=== PATIENT | male | born 1995 | race Caucasian/White ===

== ENCOUNTER 2016-03-28 00:13 | Emergency (ER) | payer BC ==
[~2016-03-28] VITALS: Ht 180.3 cm; Wt 86.6 kg
[2016-03-28 00:15] VITALS: TEMP 36.9; Ht 180.3 cm; Wt 86.6 kg
[2016-03-28] MEDS ORDERED: MULT-506 PO (00:29)
[2016-03-28] MEDS ORDERED: FEXO1TAB58 PO (00:29)
[2016-03-28] MEDS ORDERED: XYLOCAINE 1%/SOD BICARB 20 ML VIAL INFIL ONE (00:45)
--- NOTE | 2016-03-28 00:45 | EMERGENCY ROOM VISIT NOTE ---
History Report prepared by Surinder: Nupur Pink Under the Supervision of: Dr. Corrine Dobson D.O. First contact with patient: 00:20 Chief Complaint: LACERATION/CUT (SUT/DERMABOND) Stated Complaint: BLEEDING/BONE EXPOSURE History of Present Illness He ready The patient is a 21 year old male who presents to the Emergency Room with complaints of a sudden fall that occurred prior to arrival. He currently rates his discomfort as a 6/10 in severity. The patient states that a grate at his house collapsed this evening, causing the patient to fall. He states that he obtained a laceration to his right yusuf during this fall. He denies any pain to his right knee, but notes pain below the laceration. The patient states that he was able to walk after the fall and bear weight on his right leg. He states that he injured his left wrist during the fall. The patient denies any abdominal pain, hip pain, or head trauma. He states that he is up to date on his tetanus shot. The patient states that he had one beer this evening two hours prior to the incident. He denies any active medical problems and states that he is a [employer] student. Source of History: patient Onset: prior to arrival Position: other (global) Symptom Intensity: 6/10 Quality: other (fall) Timing: other (sudden) Associated Symptoms: No abdominal pain Note: Associated Symptoms: laceration to right yusuf, left wrist pain Review of Systems See HPI for pertinent positives & negatives. A total of 10 systems reviewed and were otherwise negative. Past Medical & Surgical Medical Problems: (1) No active medical problems Family History No pertinent family history stated. Social History Alcohol Use: occasionally Occupation Status: [employer] student Current/Historical Medications Scheduled Fexofenadine-Pseudoephedrine (Consuelo-D 24 Hour Allergy), 1 TAB PO DAILY Multivitamin (Multivitamin), 1 TAB PO DAILY Allergies Coded Allergies: No Known Allergies (Unverified , 03/28/16) Physical Exam Vital Signs Date Time Temp Pulse Resp B/P Pulse Ox O2 Delivery O2 Flow Rate FiO2 03/28/16 02:46 74 18 141/71 95 03/28/16 00:15 36.9 97 18 142/81 97 Room Air Physical Exam HEENT: Head - normocephalic and atraumatic Pupils are equal, round, and reactive to light. Extraocular eye muscles are intact, and sclera are anicteric. Nose - moist nasal mucosa without discharge. Mouth - moist buccal mucosa. Oropharynx is nonerythematous and there is no tonsillar exudate or edema noted. Neck: Supple; no JVD, nuchal rigidity, cervical lymphadenopathy. Heart: Regular rate and rhythm. There is a normal S1 and S2 with no murmurs, clicks, or gallops appreciated. Lungs: Clear to auscultation bilaterally with no wheezes, rales, or rhonchi. Abdomen: Soft, completely nontender, nondistended, with good bowel sounds. There are no palpable pulsatile masses or hepatosplenomegaly. There is no guarding, rigidity, or rebound noted. Extremities: Left wrist painful to palpation on the lateral aspect. No evidence of cyanosis, clubbing, or edema. There are easily palpable peripheral pulses. Skin: 8.5 cm V shaped laceration to the right anterior tib/fib region with bone exposure. warm and dry with good turgor and no rashes. Medical Decision & Procedures ER Provider Diagnostic Interpretation: Right tib /fib x-ray: no obvious abnormality, soft tissue noted anteriorly. Left wrist x-ray: buckle fracture of the distal left radius Procedure Lidocaine HCl 20 ml INFIL. Right lower extremity suture repair: See procedure note dictation by Russel Limon PA-C. ED Course 0022: The patient was evaluated in room B10. A complete history and physical exam was performed. 0045: Ordered Lidocaine HCl 20 ml INFIL. The patient went for x-ray of the left wrist and right tib-fib area. 0129: I reevaluated the patient and he is doing well. I discussed the x-ray results with him at this time. 0133: Russel Limon PA-C repaired the patients laceration at this time using 24 sutures, with the wound approximated as 8 1/2 cm. See his note for further detail. 0232: Ortho-Glass material was applied to the left wrist. The patient had good pulses, motor, and sensation before and after splinting. I reevaluated the patient and he is doing well. I discussed the exam findings with him and I discussed the treatment plan. He verbalized complete understanding and agreement. He is ready to go home. Medical Decision The patient is a 21 year old male who presents to the ED with a fall. Differential diagnosis includes tibia fracture, wrist fracture, skin laceration This is a 21-year-old male patient who suffered a fall this evening when a storm drain grate gave way. The patient suffered a laceration to the right tib- fib region of his lower extremity. He also fell and the outstretched left hand/ wrist. He has a buccal fracture of the left distal radius. The wound was repaired and dressed with antibiotic ointment and a dressing. The left wrist was splinted and he will follow-up with orthopedics. Impression Primary Impression: Laceration of right lower leg Additional Impression: Fracture of left distal radius Scribe Attestation The scribe's documentation has been prepared under my direction and personally reviewed by me in its entirety. I confirm that the note above accurately reflects all work, treatment, procedures, and medical decision making performed by me. Departure Information Dispostion Home / Self-Care Referrals No Doctor, Assigned (PCP) Forms HOME CARE DOCUMENTATION FORM, IMPORTANT VISIT INFORMATION Patient Instructions ED Laceration Ext Sutr Stap Tape, ED Splint Care Fiberglass, My [facility] Additional Instructions Rest with your right leg elevated. Watch closely for signs of infection. Sutures will need removed in 10 days Keep the wound clean with soap and water. Wear fiberglass splint on left wrist until follow up with Ortho Problem Qualifiers
--- NOTE | 2016-03-28 02:30 | EMERGENCY ROOM VISIT NOTE ---
ED Visit Note I was approached by my attending physician and asked to perform primary wound closure for laceration to the RIGHT lower extremity. Please refer to her dictation for entire historical and physical examination information. Procedure as follows: Costs and benefits of performing primary wound closure versus no repair were discussed with the patient who verbalizes understanding. Verbal consent was obtained prior to performing the procedure. 6.0 cc of 1% buffered lidocaine was used to anesthetize the RIGHT yusuf laceration. The wound was cleansed and prepped in the typical sterile fashion utilizing normal saline and Betadine. The wound was sterilely draped. Once proper anesthetization was established, the wound was further examined and demonstrated an 8.5 cm laceration which is gaping. The edges of the musculature are appreciated without laceration of the muscle belly. The wound was copiously irrigated with normal saline and Betadine. The wound was closed using 5 simple interrupted 4-0 subcuticular Vicryl sutures, 8 vertical mattress 4-0 nylon sutures and 11 simple, 4-0 nylon sutures with the wound edges being well approximated. Patient tolerated the procedure well. No complications were met. The wound was cleansed and dressed with a Bacitracin dressing. Current/Historical Medications Scheduled Fexofenadine-Pseudoephedrine (Consuelo-D 24 Hour Allergy), 1 TAB PO DAILY Multivitamin (Multivitamin), 1 TAB PO DAILY Allergies Coded Allergies: No Known Allergies (Unverified , 03/28/16) Vital Signs Date Time Temp Pulse Resp B/P Pulse Ox O2 Delivery O2 Flow Rate FiO2 03/28/16 00:15 36.9 97 18 142/81 97 Room Air Departure Information Impression Primary Impression: Laceration of right lower leg Additional Impression: Fracture of left distal radius Dispostion Home / Self-Care Condition FAIR Referrals No Doctor, Assigned [facility] (PCP) Obie Mann M.D. Contact his office for follow up of the wrist Forms HOME CARE DOCUMENTATION FORM, IMPORTANT VISIT INFORMATION Patient Instructions My [facility], ED Laceration Ext Sutr Stap Tape, ED Splint Care Fiberglass Additional Instructions Rest with your right leg elevated. Watch closely for signs of infection. Sutures will need removed in 10 days Keep the wound clean with soap and water. Wear fiberglass splint on left wrist until follow up with Ortho
[2016-03-28 02:46] VITALS: BP 141/71; PULSE 74; O2SAT 95
--- NOTE | 2016-03-28 07:10 | DIAGNOSTIC IMAGING REPORT ---
RIGHT TIBIA/FIBULA 2 VIEWS ROUTINE CLINICAL HISTORY: Pain status post trauma. Laceration COMPARISON: None. DISCUSSION: No fractures or dislocations are visualized. There is a prominent soft tissue laceration over the anterior aspect of the mid tibial shaft. No radiopaque foreign bodies are visualized. IMPRESSION: Prominent anterior laceration. No fractures identified. Electronically signed by: David Fox M.D. 03/28/2016 7:08 AM Dictated Date/Time: 03/28/2016 7:07 AM
--- NOTE | 2016-03-28 07:11 | DIAGNOSTIC IMAGING REPORT ---
LEFT WRIST MIN 3 VIEWS ROUTINE CLINICAL HISTORY: Left wrist pain status post trauma COMPARISON: None. DISCUSSION: No fractures or dislocations are visualized. IMPRESSION: No fractures or dislocations identified. Electronically signed by: David Fox M.D. 03/28/2016 7:09 AM Dictated Date/Time: 03/28/2016 7:08 AM
== END 2016-03-28 02:39 | disposition home or self-care (01) ==
LOC: C.EDB 00:15
DX: S81.811A Laceration without foreign body, right lower leg, initial encounter (principal); S52.592A Other fractures of lower end of left radius, initial encounter for closed fracture; W19.XXXA Unspecified fall, initial encounter; Y92.009 Unspecified place in unspecified non-institutional (private) residence as the place of occurrence of the external cause

== ENCOUNTER → 2016-03-30 | Outpatient (CLI) | payer BC ==
[~2016-03-30] MED LIST: FEXO1TAB58 PO; MULT-506 PO
--- NOTE | 2016-03-30 15:20 | DIAGNOSTIC IMAGING REPORT ---
SINGLE VIEW LEFT WRIST CLINICAL HISTORY: Fall with wrist pain. FINDINGS: A scaphoid view of the left wrist is correlated with radiographs of the left wrist dated 03/28/2016. The skeletal structures are well mineralized. There is no radiographic evidence of scaphoid fracture on this single view. The overlying soft tissues are within normal limits. IMPRESSION: There is no radiographic evidence of scaphoid fracture on this single view. Electronically signed by: Wily Becker M.D. 03/30/2016 3:18 PM Dictated Date/Time: 03/30/2016 3:17 PM
== END | disposition home or self-care (01) ==
LOC: C.RDSM 15:57
PROVIDERS: ATTEND Physical Medicine & Rehabilitation Sports Medicine
DX: M25.532 Pain in left wrist (principal)

== ENCOUNTER → 2016-04-13 | Outpatient (CLI) | payer BC ==
--- NOTE | 2016-04-13 15:25 | DIAGNOSTIC IMAGING REPORT ---
LEFT WRIST W/NAVICULAR MIN 3 VIEWS CLINICAL HISTORY: LEFT WRIST PAIN trauma. Pain. COMPARISON: 03/30/2016 DISCUSSION: The bones and joint spaces appear intact. There is no evidence of fracture, dislocation or bony disease. There is no evidence for soft tissue swelling. Clenched fist view is unremarkable. IMPRESSION: Negative study. Electronically signed by: Quentin Martins M.D. 04/13/2016 3:23 PM Dictated Date/Time: 04/13/2016 3:21 PM
== END | disposition home or self-care (01) ==
LOC: C.RDSM 17:14
PROVIDERS: ATTEND Physical Medicine & Rehabilitation Sports Medicine
DX: M25.532 Pain in left wrist (principal)